=== PATIENT | male | born 1940 | race Caucasian/White ===

== ENCOUNTER 2017-10-24 05:21 | Day surgery (SDC) | payer OTHER, MEDICARE ==
[~2017-10-24] VITALS: Ht 172.7 cm; Wt 93.4 kg
[~2017-10-24 05:21] MED LIST: Caltrate 600/200 PO; Coumadin,Jantoven PO; ENALAPRIL-HCTZ1 EACH PO; LO-DOSE ASPIRIN81 M1 PO; LOPRESSOR50 MG PO; Lopid PO; Lopressor PO; PriLOSEC OTC PO; Senokot S,Pericolace PO; TYLENOL REGULA325 MG PO; Theragran PO; VASERETIC PO; VITAMIN C1000 MG PO; Vitamin D PO; Vitamin-E PO; oxyCODONE PO
[2017-10-24 06:18] VITALS: BP 201/98
== END 2017-10-24 09:15 | disposition home or self-care (01) ==
LOC: SDC 05:21
PROC: 0SJ Lower Joints, Inspection (ICD-10-PCS; principal; 2017-10-24)
DX: M48.062 Spinal stenosis, lumbar region with neurogenic claudication (principal); Z53.09 Procedure and treatment not carried out because of other contraindication; I10 Essential (primary) hypertension
CPT/HCPCS: 86850; 86900; 86901; J0131; J0330; J0690; J1100; J1170; J2405

== ENCOUNTER 2017-11-21 09:15 | Day surgery (SDC) | payer OTHER, MEDICARE ==
[~2017-11-21] VITALS: Ht 172.7 cm; Wt 92.9 kg
[~2017-11-21 09:15] MED LIST changes: +ASCORBIC ACID500 M3 PO; +CALCIUM 500 MG1 EACH PO; +FOLIC ACID0.4 MG PO; +NORVASC5 MG PO; +POTASSIUM GLUCO99 M1 PO; +TYLENOL EXTRA500 MG PO; -VITAMIN C1000 MG PO; +VITAMIN D31000 UNIT PO
[2017-11-21 09:51] VITALS: BP 181/89
[2017-11-21 17:52] VITALS: BP 149/76
[2017-11-21 18:43] VITALS: BP 132/70
== END 2017-11-21 19:23 | disposition home or self-care (01) ==
LOC: SDC 09:15
PROC: 01NB0ZZ Release Lumbar Nerve, Open Approach (ICD-10-PCS; principal; 2017-11-21)
DX: M48.061 Spinal stenosis, lumbar region without neurogenic claudication (principal); M51.16 Intervertebral disc disorders with radiculopathy, lumbar region; I10 Essential (primary) hypertension; Z87.891 Personal history of nicotine dependence
CPT/HCPCS: 72020; 76000; J0131; J0330; J0690; J1100; J1170; J2250; J2405; J2710; J3010; J3370; J7643